=== PATIENT | male | born 1995 | race Caucasian/White ===

== ENCOUNTER 2021-02-15 01:53 | Emergency (ER) | payer OTHER ==
[~2021-02-15 01:53] MED LIST: FLAGYL500 MG PO; IBUPROFEN600 MG PO; IBUPROFEN800 MG PO; LEVAQUIN500 MG PO; MEDROL DOSEPAK 24 MG PO; NASONEX17 GM; OMNICEF 300 MG300 MG PO; PERCOCET 5-3251 EACH PO
== END 2021-02-15 08:04 | disposition short-term general hospital (02) ==
LOC: ER1 01:53
DX: H10.211 Acute toxic conjunctivitis, right eye (principal); F17.210 Nicotine dependence, cigarettes, uncomplicated
CPT/HCPCS: 99284; J7030